=== PATIENT | female | born 1980 | race African-American/Black ===

== ENCOUNTER 2017-10-02 12:21 | Observation (INO) ==
[2017-10-02] MEDS ORDERED: METOPROLOL TARTRATE 5 MG/5 ML VIAL IV STA (12:44)
[2017-10-02] MEDS ORDERED: ASPIRIN 325 MG TABLET PO STA (12:44)
[2017-10-02] MEDS ORDERED: NITROGLYCERIN 2% OINT 1 INCH/GM PACK TOP STA (12:44)
[2017-10-02] MEDS ORDERED: ALUM/MAG/SIMETH/LIDO VISC 1:1 30 ML BOTTLE PO STA (12:44)
[2017-10-02] MEDS ORDERED: MORPHINE 4 MG/1 ML VIAL IV PRN ×2 (12:44→15:51)
[2017-10-02] MEDS ORDERED: ONDANSETRON 4 MG/2 ML VIAL IV PRN (12:44)
[2017-10-02] MEDS ORDERED: NITROGLYCERIN 2% OINT 1 INCH/GM PACK TOP ONE (13:11)
[2017-10-02] MEDS ORDERED: ONDANSETRON 4 MG/2 ML VIAL ONE (13:12)
[2017-10-02] MEDS ORDERED: METOPROLOL TARTRATE 5 MG/5 ML VIAL IV ONE (13:12)
[2017-10-02] MEDS ORDERED: MORPHINE 4 MG/1 ML VIAL ONE (13:12)
[2017-10-02] MEDS ORDERED: ASPIRIN 325 MG TABLET ONE (13:12)
[2017-10-02] MEDS ORDERED: ALUM/MAG/SIMETH/LIDO VISC 1:1 30 ML BOTTLE PO ONE (13:12)
[2017-10-02 13:21] LABS: Apearance,Urine CLEAR (Clear); Bacteria,Urine Occasional /HPF (Few); Bilirubin,Urine Negative (Negative); Blood, Urine Negative (Negative); Glucose,Urine (UA) Negative (Negative); Ketones,Urine Negative (Negative); Mucus,Urine Occasional /LPF (Occasional); Nitrite,Urine Negative (Negative); Protein,Urine Negative; RBC,Urine <1 /HPF (0-4); Squamous Epithelial Cell,Urine Occasional /HPF (0-10); Urine Color Yellow (Yellow); Urine Specific Gravity 1.017 (1.001-1.035); Urine Urobilinogen < 2.0 EU/DL (0.2-1.0); WBC,Urine 1 /HPF (0-6)
[2017-10-02 13:33] LABS: Eosinophils # 0.1 10*3/uL (0.0-0.87); Eosinophils % 1.3 % (0.00-10.9); Mean Corpuscular HGB Conc 29.1 GM/DL (32-36); Mean Corpuscular Volume 69.6 FL (87-102); Neutrophils % 65.1 % (38.7-73.9)
[2017-10-02 13:33] LABS: Barbiturates Screen,Urine Positive (Negative); Benzodiazepines Screen,Urine Negative (Negative); Cannabinoid Screen,Urine Negative (Negative); Opiate Screen,Urine Negative (Negative); Phencyclidine Screen,Urine Negative (Negative)
[2017-10-02 13:40] LABS: PT Patient Result 10.7 SECS; Partial Thromboplastin Time 28.1 SECS (0-40)
[2017-10-02 13:54] LABS: Alanine Aminotransferase 21 U/L (13-56); Albumin 3.3 G/DL (3.4-5.0); Alkaline Phosphatase 131 U/L (45-117); Aspartate Amino Transferase 14 U/L (0-37); Bilirubin,Total < 0.39 MG/DL (0.2-1.0); Blood Urea Nitrogen 11 MG/DL (7-18); Calcium 8.7 MG/DL (8.5-10.1); Glucose 95 MG/DL (74-106); Osmolality,Calculated 279.3 MOS/KG (273-304); Potassium 4.2 MMOL/L (3.5-5.1); Sodium 141 MMOL/L (136-145); Total Protein 7.7 G/DL (6.4-8.3)
[2017-10-02 13:56] LABS: Basophils % 0.3 % (0.0-0.8); Hematocrit 41.2 VOL% (35.7-47.0); Immature Granulocytes % 0.5 %; Immature Granulocytes Absolute 0.04 #; Lymphocytes # 2.1 10*3/uL (1.4-4.0); Lymphocytes % 26.6 % (21.3-54.2); Mean Corpuscular Hemoglobin 20 PG (27-34); Monocytes # 0.5 10*3/uL (0.11-0.8); Monocytes % 6.2 % (1.7-12.7); Neutrophils # 5.2 10*3/uL (1.4-7.4); Platelet Count 192 T/CUMM (130-400); Red Blood Count 5.92 MC/CUMM (3.8-5.5); Red Cell Distribution Width 21.7 % (9.3-17.3)
[2017-10-02 14:08] LABS: Giant Platelets Few; Hypochromasia 1+; Microcytosis 1+; Ovalocytes Slight; Platelet Estimate Adequate
[2017-10-02] MEDS ORDERED: ACETAMINOPHEN 325 MG TABLET PO PRN (15:51)
[2017-10-02] MEDS ORDERED: DOCUSATE SODIUM 100 MG CAPSULE PO PRN (15:51)
[2017-10-02] MEDS ORDERED: guaiFENesin/DM ER 600-30 MG TABLET PO PRN (15:51)
[2017-10-02] MEDS ORDERED: diphenhydrAMINE CAP 25 MG CAPSULE PO PRN (15:51)
[2017-10-02] MEDS ORDERED: BUTALBITAL/ACETAMIN/CAFFEINE 50-325-40 MG TABLET PO PRN (17:09)
[2017-10-02] MEDS: ENOXAPARIN 40 MG/0.4 ML SYRINGE SUBCUT SCH (17:58)
[2017-10-02] MEDS: PANTOPRAZOLE 40 MG TABLET PO SCH (17:59)
[2017-10-02] MEDS: SODIUM CHLORIDE 0.9% 1,000 ML IV SCH (17:59)
[2017-10-02] MEDS: PROMETHAZINE 25 MG TABLET PO PRN (17:59)
[2017-10-02] MEDS: amLODIPine 10 MG TABLET PO SCH (17:59)
[2017-10-02 21:29] LABS: Troponin I Only < 0.015 NG/ML (0.00-0.045)
[2017-10-03] MEDS: PROMETHAZINE 25 MG TABLET PO PRN (00:57)
[2017-10-03] MEDS: SODIUM CHLORIDE 0.9% 1,000 ML IV SCH (05:23)
[2017-10-03 05:52] LABS: Basophils % 0.1 % (0.0-0.8); Eosinophils # 0.1 10*3/uL (0.0-0.87); Eosinophils % 1.4 % (0.00-10.9); Hematocrit 38.8 VOL% (35.7-47.0); Immature Granulocytes % 0.4 %; Immature Granulocytes Absolute 0.03 #; Lymphocytes # 2.4 10*3/uL (1.4-4.0); Lymphocytes % 31.3 % (21.3-54.2); Mean Corpuscular HGB Conc 28.6 GM/DL (32-36); Mean Corpuscular Hemoglobin 20 PG (27-34); Mean Corpuscular Volume 70.4 FL (87-102); Monocytes # 0.5 10*3/uL (0.11-0.8); Monocytes % 7.1 % (1.7-12.7); Neutrophils # 4.6 10*3/uL (1.4-7.4); Neutrophils % 59.7 % (38.7-73.9); Platelet Count 192 T/CUMM (130-400); Red Blood Count 5.51 MC/CUMM (3.8-5.5); Red Cell Distribution Width 21.7 % (9.3-17.3); White Blood Count 7.6 T/CUMM (4-12)
[2017-10-03 05:53] LABS: Hemoglobin 11.1 GM/DL (12.0-16.0)
[2017-10-03 06:00] LABS: Hypochromasia 2+; Microcytosis 2+
[2017-10-03 06:01] LABS: Ovalocytes Slight; Polychromasia Slight; Target Cells Slight
[2017-10-03 06:02] LABS: Platelet Estimate Adequate
[2017-10-03 06:42] LABS: Calcium 8.2 MG/DL (8.5-10.1); Osmolality,Calculated 280.3 MOS/KG (273-304); Potassium 4.2 MMOL/L (3.5-5.1); Risk Ratio 4.09; Thyroid Stimulating Hormone 1.28 uIU/ml (0.358-3.74); VLDL CHOLESTEROL 19.8 MG/DL
[2017-10-03] MEDS: amLODIPine 10 MG TABLET PO SCH (10:02)
[2017-10-03] MEDS: PANTOPRAZOLE 40 MG TABLET PO SCH (10:03)
[2017-10-03] MEDS: ENOXAPARIN 40 MG/0.4 ML SYRINGE SUBCUT SCH (15:59)
[2017-10-03 16:16] VITALS: BP 156/83
== END 2017-10-03 18:00 | disposition home or self-care (01) ==
LOC: EDUNIT# → EDBD → N.ED 12:21 → N.EDINP 12:21 → N.TELES 16:55
PROVIDERS: ADMIT Internal Medicine; ATTEND Internal Medicine